=== PATIENT | female | born 1950 | race Asian ===

== ENCOUNTER 2017-12-31 05:07 | Emergency (ER) | payer MEDICARE ==
[~2017-12-31] VITALS: Ht 157.5 cm; Wt 61.2 kg
[2017-12-31 05:07] VITALS: BP_SYST 166
--- NOTE | 2017-12-31 05:07 | NUR ---
Pt BIB ALS from home r/t dizziness with N/V since 399 this AM. Pt states that she woke up from a nightmare, room was spinning and she became dizzy. She then felt better, but symptoms returned. Denies falling or hitting head, -LOC.
--- NOTE | 2017-12-31 05:20 | NUR ---
Dr. Tavarez at bedside.
[2017-12-31] MEDS ORDERED: ONDANSETRON HCL 4 MG/2 ML VIAL ONE (05:25)
[2017-12-31] MEDS ORDERED: ONDANSETRON HCL 4 MG/2 ML VIAL IVP ONE (05:30)
[2017-12-31] MEDS ORDERED: MECLIZINE HCL 25 MG TABLET (ANITVERT) PO ONE (05:30)
[2017-12-31] MEDS ORDERED: NACL 0.9% 1,000 ML IV ONE (05:30)
--- NOTE | 2017-12-31 05:40 | NUR ---
Pt to CT via stretcher.
--- NOTE | 2017-12-31 05:45 | NUR ---
# 20 gauge angiocath placed to RAC. Use of asceptic technique. Opsite placed over site. Blood return noted. Blood for lab drawn from site. Flushed with 10 cc of normal saline. No evidence of infiltration noted. Patient tolerated well.
[2017-12-31 05:50] LABS: BASOPHILS % (AUTO) 0.3 % (0.0-2.0); EOSINOPHILS # (AUTO) 0.1 K/uL (0.0-0.4); EOSINOPHILS % (AUTO) 2.1 % (0.0-4.0); HEMATOCRIT 43.4 % (36-48); HEMOGLOBIN 14.1 g/dL (12.0-16.0); LYMPHOCYTES # (AUTO) 0.9 K/uL (1.0-5.5); LYMPHOCYTES % (AUTO) 13.2 % (20.5-51.5); MEAN CORPUSCULAR HEMOGLOBIN 31 pg (27-31); MEAN CORPUSCULAR HGB CONC 33 % (32-36); MEAN CORPUSCULAR VOLUME 94 fL (79.0-98.0); MONOCYTES # (AUTO) 0.6 K/uL (0.0-1.0); MONOCYTES % (AUTO) 8.4 % (1.7-9.3); NEUTROPHILS # (AUTO) 5.4 K/uL (1.8-7.7); PLATELET COUNT (AUTO) 262 K/uL (130-430); RED BLOOD CELL COUNT(AUTO) 4.61 MIL/uL (4.2-6.2); RED CELL DISTRIBUTION WIDTH 12.3 % (9.0-15.0)
--- NOTE | 2017-12-31 05:52 | NUR ---
Pt returns from CT. No further vomiting noted. Family member at bedside. VSS.
[2017-12-31 05:53] LABS: ANION GAP 9 (5-15); CALCIUM 9.3 mg/dL (8.4-11.0); CHLORIDE 102 mmol/L (98-107); GLUCOSE 191 mg/dL (70-99); POTASSIUM 3.1 mmol/L (3.5-5.1); SODIUM SERUM 140 mmol/L (136-145); UREA NITROGEN, BLOOD 21 mg/dL (8-21)
[2017-12-31 05:58] LABS: GFR AFRICAN AMERICAN 91 mL/min (>90)
[2017-12-31 06:02] LABS: ALANINE AMINOTRANSFERASE 31 U/L (12-78); ALBUMIN 4.2 g/dL (3.4-4.8); ASPARTATE AMINOTRANSFERASE 19 U/L (10-37); TOTAL BILIRUBIN 0.7 mg/dL (0.0-1.0)
[2017-12-31] MEDS ORDERED: CEL250 PO (06:10)
[2017-12-31] MEDS ORDERED: PRED5TAB PO (06:11)
[2017-12-31] MEDS ORDERED: TACR1CAP PO (06:11)
[2017-12-31] MEDS ORDERED: ASPI-1153 PO (06:12)
[2017-12-31] MEDS ORDERED: SULF1TAB47 PO (06:13)
[2017-12-31] MEDS ORDERED: POTASSIUM CHLORIDE 10 MEQ TAB.PRT.SR PO ONE (06:15)
[2017-12-31] MEDS ORDERED: VALG450T PO (06:15)
[2017-12-31] MEDS ORDERED: DILT180C69 PO (06:18)
[2017-12-31] MEDS ORDERED: DOCU-144 PO (06:19)
[2017-12-31] MEDS ORDERED: NEUTPHOSP PO (06:22)
[2017-12-31] MEDS ORDERED: LIP10 PO (06:22)
[2017-12-31] MEDS ORDERED: LEVO100T9 PO (06:23)
[2017-12-31] MEDS ORDERED: PRO40 PO (06:23)
[2017-12-31] MEDS ORDERED: HYDR-4272 PO (06:25)
[2017-12-31] MEDS ORDERED: MAGN400T10 PO (06:27)
--- NOTE | 2017-12-31 06:30 | NUR ---
Pt resting quietly, easily awakens, no needs verbalized. Denies nausea and no further vomiting noted. Family member at bedside.
--- NOTE | 2017-12-31 07:15 | NUR ---
Assumed care from DANNY Darden.
--- NOTE | 2017-12-31 07:30 | NUR ---
Patient resting comfortably. Needs are met at this time, patient IVF to be completed. Patient alert and oriented, family at bedside for comfort and safety.
--- NOTE | 2017-12-31 09:00 | NUR ---
Patient given written and verbal discharge instructions and verbalizes understanding. ER MD discussed with patient the results and treatment provided. Patient in stable condition. ID arm band removed. IV catheter removed intact and dressing applied, no active bleeding. Rx of Meclazine given. Patient educated on pain management and to follow up with PMD. Pain Scale 0/10. Opportunity for questions provided and answered.
[2017-12-31 09:01] VITALS: BP_SYST 127
== END 2017-12-31 09:00 | disposition home or self-care (01) ==
LOC: SED 05:07
DX: R42 Dizziness and giddiness (principal); E11.29 Type 2 diabetes mellitus with other diabetic kidney complication; N28.9 Disorder of kidney and ureter, unspecified; I10 Essential (primary) hypertension; Z79.82 Long term (current) use of aspirin; Z79.899 Other long term (current) drug therapy; Z88.6 Allergy status to analgesic agent; Z94.0 Kidney transplant status
CPT/HCPCS: 36415; 70450; 71045; 80053; 84484; 85025; 93005; 96361; 96374; 99285; J2405; J7030; J8597